=== PATIENT | male | born 1985 | race American Indian/Alaskan Native ===

== ENCOUNTER 2018-11-30 18:35 | Emergency (ER) | payer MEDICARE ==
--- NOTE | 2018-11-30 19:27 | Emergency Department Report ---
ED Psych HPI - General Chief Complaint: Psych Stated Complaint: PSYCH EVAL Time Seen by Provider: 11/30/18 19:21 Source: patient Mode of arrival: Ambulatory Limitations: No Limitations - History of Present Illness Initial Comments: Patient is a 33-year-old transgender patient that presents to emergency room for ECT therapy for depression.. Patient states the she wants to do inpatient therapy in order to get ECT done. Patient denies suicidal or homicidal ideation. Patient denies autoimmune hallucinations. Patient denies anxiety. Patient states she just wants to be transferred to inpatient unit. MD Complaint: feels depressed -: Gradual Associated Psychiatric Symptoms: depression History of same: Yes Quality: constant Improves With: therapy Worsens With: other Associated Symptoms: denies other symptoms. denies: confusion, headache, shortness of breath, nausea, vomiting, syncope, insomnia - Related Data Home Medications Medication Instructions Recorded Confirmed Last Taken Cyclobenzaprine HCl [Flexeril 5 MG 5 mg PO QDAY 04/25/16 05/17/16 05/16/16 TAB] Duloxetine HCl [Cymbalta] 60 mg PO QDAY 04/25/16 05/17/16 05/17/16 Meloxicam [Mobic] 15 mg PO QDAY 04/25/16 05/17/16 05/16/16 Paliperidone Palmitate(Nf) [Invega 234 mg IM QMONTH 04/25/16 05/17/16 05/02/16 Sustenna] Sulindac 200 mg PO BID 04/25/16 05/17/16 05/17/16 Valacyclovir HCl [Valtrex] 1,000 mg PO QDAY 04/25/16 05/17/16 05/16/16 ARIPiprazole [Abilify] 15 mg PO DAILY 05/17/16 05/17/16 05/16/16 Topiramate [Topamax] 100 mg PO BID 05/17/16 05/17/16 05/16/16 Previous Rx's Medication Instructions Recorded Last Taken Type amLODIPine [Norvasc] 10 mg PO DAILY #30 tab 12/09/14 05/16/16 Rx Allergies Allergy/AdvReac Type Severity Reaction Status Date / Time bupropion HCl Allergy Unknown Verified 01/21/16 12:39 [From Wellbutrin] ziprasidone HCl [From Geodon] Allergy Unknown Verified 01/21/16 12:39 ziprasidone mesylate Allergy Unknown Verified 01/21/16 12:39 [From [facility]] ED Review of Systems ROS: Stated complaint: PSYCH EVAL Other details as noted in HPI Constitutional: denies: chills, fever Eyes: denies: eye pain, eye discharge, vision change ENT: denies: ear pain, throat pain Respiratory: denies: cough, shortness of breath, wheezing Cardiovascular: denies: chest pain, palpitations Endocrine: no symptoms reported Gastrointestinal: denies: abdominal pain, nausea, diarrhea Genitourinary: denies: urgency, dysuria Musculoskeletal: denies: back pain, joint swelling, arthralgia Skin: denies: rash, lesions Neurological: denies: headache, weakness, paresthesias Psychiatric: depression. denies: anxiety, auditory hallucinations, visual hallucinations, homicidal thoughts, suicidal thoughts Hematological/Lymphatic: denies: easy bleeding, easy bruising ED Past Medical Hx - Past Medical History Previous Medical History?: Yes Hx Hypertension: Yes Hx Psychiatric Treatment: Yes (bipolar,BPD,depression,PTSD) Additional medical history: chronic neck/back pain - Surgical History Past Surgical History?: Yes Additional Surgical History: oral maxilofacial - Family History Family history: no significant - Social History Smoking Status: Former Smoker Substance Use Type: None - Medications Home Medications: Home Medications Medication Instructions Recorded Confirmed Last Taken Type amLODIPine [Norvasc] 10 mg PO DAILY #30 tab 12/09/14 05/17/16 05/16/16 Rx Cyclobenzaprine HCl [Flexeril 5 MG 5 mg PO QDAY 04/25/16 05/17/16 05/16/16 History TAB] Duloxetine HCl [Cymbalta] 60 mg PO QDAY 04/25/16 05/17/16 05/17/16 History Meloxicam [Mobic] 15 mg PO QDAY 04/25/16 05/17/16 05/16/16 History Paliperidone Palmitate(Nf) [Invega 234 mg IM QMONTH 04/25/16 05/17/16 05/02/16 History Sustenna] Sulindac 200 mg PO BID 04/25/16 05/17/16 05/17/16 History Valacyclovir HCl [Valtrex] 1,000 mg PO QDAY 04/25/16 05/17/16 05/16/16 History ARIPiprazole [Abilify] 15 mg PO DAILY 05/17/16 05/17/16 05/16/16 History Topiramate [Topamax] 100 mg PO BID 05/17/16 05/17/16 05/16/16 History ED Physical Exam - General Limitations: No Limitations General appearance: alert, in no apparent distress - Head Head exam: Present: atraumatic, normocephalic - Eye Eye exam: Present: normal appearance - ENT ENT exam: Present: mucous membranes moist - Neck Neck exam: Present: normal inspection - Respiratory Respiratory exam: Present: normal lung sounds bilaterally. Absent: respiratory distress - Cardiovascular Cardiovascular Exam: Present: regular rate, normal rhythm. Absent: systolic murmur, diastolic murmur, rubs, gallop - GI/Abdominal GI/Abdominal exam: Present: soft, normal bowel sounds - Rectal Rectal exam: Present: deferred - Extremities Exam Extremities exam: Present: normal inspection - Back Exam Back exam: Present: normal inspection - Neurological Exam Neurological exam: Present: alert, oriented X3 - Psychiatric Psychiatric exam: Present: normal affect, normal mood. Absent: homicidal ideation, suicidal ideation - Skin Skin exam: Present: warm, dry, intact, normal color. Absent: rash ED Course Vital Signs 11/30/18 18:38 Temperature 97.8 F Pulse Rate 78 Respiratory 20 Rate Blood Pressure 141/66 O2 Sat by Pulse 100 Oximetry - Reevaluation(s) Reevaluation #1: Discussed plan of care and discharge the patient. Patient does not meet inpatient psychiatric arterial. Patient is not worn a 1013. Patient is medically stable. Patient will be discharged home. All labs canceled. Patient was in the emergency room for ECT therapy. 11/30/18 19:39 ED Medical Decision Making - Medical Decision Making Patient is a 33-year-old transgender female that presents emergency room for depression and wanting inpatient ECT therapy. Patient does not meet emergent medical criteria. Patient is stable for discharge. Patient be discharged home. Patient has history of depression is for which she is on medications. Patient to continue all medications. Patient to follow up with psychiatrist. Patient given discharge instructions. Patient does not have homicidal or suicidal ideations. Patient denies having hallucinations. Patient is stable from a psychiatric standpoint. Critical care attestation.: If time is entered above; I have spent that time in minutes in the direct care of this critically ill patient, excluding procedure time. ED Disposition Clinical Impression: Depression Qualifiers: Depression Type: unspecified Qualified Code(s): F32.9 - Major depressive disorder, single episode, unspecified Disposition: DC-01 TO HOME OR SELFCARE Is pt being admited?: No Does the pt Need Aspirin: No Condition: Stable Instructions: Depression (ED) Additional Instructions: Patient to follow up with primary care in 2-3 days. Patient to follow up with psychiatrist to 2 days. Patient to return to ER condition worsens. Patient to take medications as directed by her psychiatrist and primary care. Patient to rest. Time of Disposition: 19:30
[2018-12-01 14:34] VITALS: BP 141/66
== END 2018-11-30 19:50 | disposition home or self-care (01) ==
LOC: EDSEX → ED 18:35 → EEVIPCON 18:35 → ED 19:50
DX: F32.9 Major depressive disorder, single episode, unspecified (principal); I10 Essential (primary) hypertension; F43.10 Post-traumatic stress disorder, unspecified; M54.2 Cervicalgia; M54.5 Low back pain; G89.29 Other chronic pain; Z87.891 Personal history of nicotine dependence; Z88.5 Allergy status to narcotic agent
CPT/HCPCS: 99282

== ENCOUNTER 2018-12-21 10:49 | Emergency (ER) | payer MEDICARE | END 2018-12-22 15:53 | disposition left against medical advice (07) | LOC: ED 10:49 ==

== ENCOUNTER 2018-12-21 10:51 | Emergency (ER) | payer MEDICARE ==
[2018-12-21 11:04] VITALS: BP 134/77
--- NOTE | 2018-12-21 11:10 | Emergency Department Report ---
Chief Complaint: Medical Clearance Stated Complaint: CLEARANCE Time Seen by Provider: 12/21/18 11:06 - HPI History of Present Illness: [facility] he had been there for SI PMH bipolar depression comes here today for "medical clearance" hyperverbal random thoughts flight of ideas meds naprosyn trazadone valacyclovir laly coreg latuda li norvasc NO HI NO SI plans on going back to his boyfriend in [place] but wants medically cleared MSE completed no threat to self or others - Exam Vital Signs: Vital Signs 12/21/18 10:59 Temperature 98.3 F Pulse Rate 85 Respiratory 18 Rate Blood Pressure 134/77 O2 Sat by Pulse 99 Oximetry MSE screening note: Focused history and physical exam performed. Due to findings the following was ordered: ED Disposition for MSE Condition: Stable Referrals: SEBASTIEN CASTRO MD [Primary Care Provider] - 3-5 Days
--- NOTE | 2018-12-21 11:42 | Emergency Department Report ---
ED Psych HPI - General Chief Complaint: Medical Clearance Stated Complaint: CLEARANCE Time Seen by Provider: 12/21/18 11:06 Source: patient Mode of arrival: Ambulatory - History of Present Illness Initial Comments: Violent is a very pleasant 33 yo transgender female with history of bipolar disorder, PTSD and borderline personality disorder who politely requests serum and urine studies for medical clearance. She was recently released from the [facility] after hospitalization at [facility]. She desires to obtain ECT at [facility] on an outpatient basis. She currently does not have any physical complaints. She denies suicidal or homicidal ideation. Complaint: other (requests medical clearance labs) Associated Psychiatric Symptoms: none Context: other (currently taking psychiatric medications. She was given medications upon discharge.) Associated Symptoms: denies other symptoms - Related Data Home Medications Medication Instructions Recorded Confirmed Last Taken Valacyclovir HCl [Valtrex] 1,000 mg PO QDAY 04/25/16 05/17/16 05/16/16 Previous Rx's Medication Instructions Recorded Last Taken Type amLODIPine [Norvasc] 10 mg PO DAILY #30 tab 12/09/14 05/16/16 Rx Allergies Allergy/AdvReac Type Severity Reaction Status Date / Time bupropion HCl Allergy Unknown Verified 01/21/16 12:39 [From Wellbutrin] ziprasidone HCl [From Geodon] Allergy Unknown Verified 01/21/16 12:39 ziprasidone mesylate Allergy Unknown Verified 01/21/16 12:39 [From Geodon] ED Review of Systems ROS: Stated complaint: CLEARANCE Other details as noted in HPI Comment: All other systems reviewed and negative Constitutional: denies: fever, malaise Cardiovascular: denies: chest pain ED Past Medical Hx - Past Medical History Previous Medical History?: Yes Hx Hypertension: Yes Hx Psychiatric Treatment: Yes (bipolar,BPD,depression,PTSD) Additional medical history: chronic neck/back pain - Surgical History Past Surgical History?: Yes Additional Surgical History: oral maxilofacial - Family History Family history: other (noncontributory on this presentation) - Social History Smoking Status: Current Every Day Smoker Substance Use Type: Alcohol - Medications Home Medications: Home Medications Medication Instructions Recorded Confirmed Last Taken Type amLODIPine [Norvasc] 10 mg PO DAILY #30 tab 12/09/14 05/17/16 05/16/16 Rx Valacyclovir HCl [Valtrex] 1,000 mg PO QDAY 04/25/16 05/17/16 05/16/16 History ED Physical Exam - General Limitations: No Limitations General appearance: alert, in no apparent distress - Head Head exam: Present: atraumatic, normocephalic - Eye Eye exam: Present: normal appearance - ENT ENT exam: Present: mucous membranes moist - Neck Neck exam: Present: normal inspection, full ROM. Absent: tenderness, meningismus - Respiratory Respiratory exam: Present: normal lung sounds bilaterally. Absent: respiratory distress, wheezes, rales, rhonchi - Cardiovascular Cardiovascular Exam: Present: regular rate, normal rhythm, normal heart sounds. Absent: systolic murmur, diastolic murmur, rubs, gallop - GI/Abdominal GI/Abdominal exam: Present: soft, normal bowel sounds. Absent: distended, tenderness, guarding, rebound - Extremities Exam Extremities exam: Present: normal inspection - Back Exam Back exam: Present: normal inspection - Neurological Exam Neurological exam: Present: alert, oriented X3 - Psychiatric Psychiatric exam: Present: normal affect, normal mood - Skin Skin exam: Present: warm, dry, intact, normal color. Absent: rash ED Course Vital Signs 12/21/18 10:59 Temperature 98.3 F Pulse Rate 85 Respiratory 18 Rate Blood Pressure 134/77 O2 Sat by Pulse 99 Oximetry ED Medical Decision Making - Lab Data Laboratory Results - last 24 hr 12/21/18 12/21/18 12/21/18 11:44 11:44 11:52 WBC 8.4 RBC 4.56 Hgb 10.5 Hct 32.5 MCV 71 L MCH 23 L MCHC 32 RDW 17.3 H Plt Count 268 Lymph % (Auto) 21.4 Barren % (Auto) 10.3 H Eos % (Auto) 1.0 Baso % (Auto) 0.5 Lymph # 1.8 Barren # 0.9 H Eos # 0.1 Baso # 0.0 Seg Neutrophils % 66.8 Seg Neutrophils # 5.6 Sodium Potassium Chloride Carbon Dioxide Anion Gap BUN Creatinine Estimated GFR BUN/Creatinine Ratio Glucose Calcium Total Bilirubin AST ALT Alkaline Phosphatase Total Protein Albumin Albumin/Globulin Ratio Urine Color Straw Urine Turbidity Clear Urine pH 5.0 Ur Specific [place] 1.006 Urine Protein <15 mg/dl Urine Glucose (UA) Neg Urine Ketones Neg Urine Blood Neg Urine Nitrite Neg Urine Bilirubin Neg Urine Urobilinogen < 2.0 Ur Leukocyte Esterase Neg Urine WBC (Auto) < 1.0 Urine RBC (Auto) 1.0 U Epithel Cells (Auto) < 1.0 Salicylates Urine Opiates Screen Presumptive negative Urine Methadone Screen Presumptive negative Acetaminophen Ur Barbiturates Screen Presumptive negative Ur Phencyclidine Scrn Presumptive negative Ur Amphetamines Screen Presumptive negative U Benzodiazepines Scrn Presumptive negative Urine Cocaine Screen Presumptive negative U Marijuana (THC) Screen Presumptive negative Drugs of Abuse Note Disclamer Plasma/Serum Alcohol 12/21/18 12/21/18 12/21/18 11:52 11:52 11:52 WBC RBC Hgb Hct MCV MCH MCHC RDW Plt Count Lymph % (Auto) Barren % (Auto) Eos % (Auto) Baso % (Auto) Lymph # Barren # Eos # Baso # Seg Neutrophils % Seg Neutrophils # Sodium 140 Potassium 4.0 Chloride 104.1 Carbon Dioxide 23 Anion Gap 17 BUN 10 Creatinine 0.7 Estimated GFR > 60 BUN/Creatinine Ratio 14 Glucose 120 H Calcium 8.8 Total Bilirubin < 0.20 AST 37 ALT 24 Alkaline Phosphatase 90 Total Protein 6.9 Albumin 3.9 Albumin/Globulin Ratio 1.3 Urine Color Urine Turbidity Urine pH Ur Specific [place] Urine Protein Urine Glucose (UA) Urine Ketones Urine Blood Urine Nitrite Urine Bilirubin Urine Urobilinogen Ur Leukocyte Esterase Urine WBC (Auto) Urine RBC (Auto) U Epithel Cells (Auto) Salicylates < 0.3 L Urine Opiates Screen Urine Methadone Screen Acetaminophen < 5.0 L Ur Barbiturates Screen Ur Phencyclidine Scrn Ur Amphetamines Screen U Benzodiazepines Scrn Urine Cocaine Screen U Marijuana (THC) Screen Drugs of Abuse Note Plasma/Serum Alcohol 12/21/18 11:52 WBC RBC Hgb Hct MCV MCH MCHC RDW Plt Count Lymph % (Auto) Barren % (Auto) Eos % (Auto) Baso % (Auto) Lymph # Barren # Eos # Baso # Seg Neutrophils % Seg Neutrophils # Sodium Potassium Chloride Carbon Dioxide Anion Gap BUN Creatinine Estimated GFR BUN/Creatinine Ratio Glucose Calcium Total Bilirubin AST ALT Alkaline Phosphatase Total Protein Albumin Albumin/Globulin Ratio Urine Color Urine Turbidity Urine pH Ur Specific [place] Urine Protein Urine Glucose (UA) Urine Ketones Urine Blood Urine Nitrite Urine Bilirubin Urine Urobilinogen Ur Leukocyte Esterase Urine WBC (Auto) Urine RBC (Auto) U Epithel Cells (Auto) Salicylates Urine Opiates Screen Urine Methadone Screen Acetaminophen Ur Barbiturates Screen Ur Phencyclidine Scrn Ur Amphetamines Screen U Benzodiazepines Scrn Urine Cocaine Screen U Marijuana (THC) Screen Drugs of Abuse Note Plasma/Serum Alcohol < 0.01 - Medical Decision Making Komal politely requested medical clearance labs for ECT on an outpatient basis. She is currently taking the medications dispensed to her after recent hospitalization at [facility]. She does have access to lodging and transpo rtation. She is calm and insightful. She denies suicidal homicidal ideation. She did not have any other requests or concerns. I reviewed the labs. CBC chemistry tox screen UDS all within normal limits. Critical care attestation.: If time is entered above; I have spent that time in minutes in the direct care of this critically ill patient, excluding procedure time. ED Disposition Clinical Impression: Medical clearance for psychiatric admission, Bipolar disorder, PTSD (post- traumatic stress disorder), Borderline personality disorder Disposition: DC-01 TO HOME OR SELFCARE Is pt being admited?: No Does the pt Need Aspirin: No Condition: Stable Referrals: SEBASTIEN CASTRO MD [Primary Care Provider] - 3-5 Days [facility] [Outside] - 3-5 Days
[2018-12-21 11:56] LABS: Bilirubin,Urine NEG (Negative); Blood,Urine NEG (Negative); Color,Urine Straw (Yellow); Protein,Urine <15 mg/dL mg/dL (Negative); Urobilinogen,Urine < 2.0 mg/dL (<2.0); WBC,Urine < 1.0 /HPF (0.0-6.0)
[2018-12-21 12:00] LABS: Basophils % (Auto) 0.5 % (0.0-1.8); Eosinophils # (Auto) 0.1 K/mm3 (0.0-0.4); Hematocrit 32.5 % (30.3-42.9); Hemoglobin 10.5 gm/dl (10.1-14.3); Lymphocytes # (Auto) 1.8 K/mm3 (1.2-5.4); Lymphocytes % (Auto) 21.4 % (13.4-35.0); Mean Corpuscular HGB Conc 32 % (30-34); Mean Corpuscular Volume 71 fl (79-97); Monocytes # (Auto) 0.9 K/mm3 (0.0-0.8); Monocytes % (Auto) 10.3 % (0.0-7.3); Platelet Count 268 K/mm3 (140-440); Red Blood Count 4.56 M/mm3 (3.65-5.03); Red Cell Distribution Width 17.3 % (13.2-15.2)
[2018-12-21 12:05] LABS: Amphetamine Screen,Urine PRESUMPTIVE NEGATIVE; Benzodiazepines Screen,Urine PRESUMPTIVE NEGATIVE; Cannabinoid Screen,Urine PRESUMPTIVE NEGATIVE; Cocaine Screen,Urine PRESUMPTIVE NEGATIVE; Methadone Screen,Urine PRESUMPTIVE NEGATIVE; Opiate Screen,Urine PRESUMPTIVE NEGATIVE
[2018-12-21 12:16] LABS: Alanine Aminotransferase 24 units/L (7-56); Albumin 3.9 g/dL (3.9-5); BUN/Creatinine Ratio 14; Blood Urea Nitrogen 10 mg/dL (7-17); Calcium 8.8 mg/dL (8.4-10.2); Hemolysis Index 4
== END 2018-12-21 13:19 | disposition home or self-care (01) ==
LOC: EDSEX → ED 10:51
DX: F60.3 Borderline personality disorder (principal); F31.9 Bipolar disorder, unspecified; F43.10 Post-traumatic stress disorder, unspecified; F17.200 Nicotine dependence, unspecified, uncomplicated; I10 Essential (primary) hypertension; G89.29 Other chronic pain; Z88.8 Allergy status to other drugs, medicaments and biological substances
CPT/HCPCS: 36415; 80053; 80307; 81001; 85025; 99283; G0480; 80320